=== PATIENT | female | born 1995 | race Caucasian/White ===

== ENCOUNTER 2018-02-24 21:53 | Emergency (ER) | payer OTHER ==
[~2018-02-24] VITALS: Ht 165.1 cm; Wt 62.2 kg
[~2018-02-24 21:53] MED LIST: MELLATONIN
[2018-02-24 22:04] VITALS: Ht 165.1 cm; Wt 62.2 kg
[2018-02-24] MEDS ORDERED: DIAZEPAM 5MG TAB PO STA (22:34)
--- NOTE | 2018-02-24 22:40 | EMERGENCY ROOM VISIT NOTE ---
History Report prepared by Michelleibramon: Alexandra Zamora Under the Supervision of: Dr. Giacomo Bolton M.D. First contact with patient: 22:28 Chief Complaint: SHOULDER PAIN Stated Complaint: FALL/ R SHOULDER PAIN History of Present Illness The patient is a 22 year old female who presents to the Emergency Room with complaints of constant R shoulder pain beginning this evening. She notes she was playing with her dog, when he pulled on the leash, and she fell onto her R arm. The patient reports she felt a "pop" in her arm as she was falling, and rates her pain a 10/10 in severity. She denies elbow pain. Her sister reports the patient was unable to get off the ground for a few minutes due to the pain. Source of History: patient Onset: this evening Position: shoulder (right) Symptom Intensity: 10/10 Quality: other (shoulder pain) Timing: constant Note: Denies: elbow pain Review of Systems See HPI for pertinent positives and negatives. A total of ten systems were reviewed and were otherwise negative. Past Medical & Surgical Medical Problems: (1) No chronic diseases present No chronic diseases present Family History No pertinent family history stated. Social History Smoking Status: Never Smoker Marital Status: single Current/Historical Medications Scheduled PRN Ibuprofen Tab (Motrin), 800 MG PO Q8H PRN for Pain Allergies Coded Allergies: No Known Allergies (Unverified , 02/24/18) Physical Exam Vital Signs Date Time Temp Pulse Resp B/P (MAP) Pulse Ox O2 Delivery O2 Flow Rate FiO2 02/25/18 01:18 70 12 102/61 94 02/25/18 00:16 70 12 100/58 94 Room Air 02/24/18 22:04 99 22 92/80 100 Room Air Physical Exam GENERAL: Awake, alert, uncomfortable-appearing, in mild distress HENT: Normocephalic, atraumatic. Oropharynx unremarkable. [Mucous membranes are dry.] EYES: Normal conjunctiva. Sclera non-icteric. NECK: Supple. No nuchal rigidity. FROM. No JVD. RESPIRATORY: Clear to auscultation. CARDIAC: Regular rate, normal rhythm. Extremities warm and well perfused. Pulses equal. ABDOMEN: Soft, non-distended. No tenderness to palpation. No rebound or guarding. No masses. RECTAL: Deferred. MUSCULOSKELETAL: Chest examination reveals no tenderness. The back is symmetrical on inspection without obvious abnormality. There is no CVA tenderness to palpation. No joint edema. UPPER EXTREMITIES: R shoulder deformity, tenderness at GH joint, axillary nerve intact, distal PMS intact, full ROM at elbow and wrist. LOWER EXTREMITIES: Calves are equal size bilaterally and non-tender. No edema. No discoloration. NEURO: Normal sensorium. No sensory or motor deficits noted. SKIN: No rash or jaundice noted. Medical Decision & Procedures ER Provider Diagnostic Interpretation: PRELIMINARY XRAY READ: Shoulder and Humerus Xray (initial): Likely anterior shoulder dislocation. Possible Brea Sachs deformity. No gross fx otherwise. Post reduction shoulder Xray: Successful shoulder reduction. Possible Brea Sachs deformity. No gross fx. Medications Administered Medications (Trade) Dose Ordered Sig/Antonella Route Start Time Stop Time Status Last Admin Dose Admin Diazepam (Valium Tab) 2 mg NOW STAT PO 02/24/18 22:34 02/24/18 22:35 DC 02/24/18 22:34 2 MG Morphine Sulfate (MoRPHine SULFATE INJ) 4 mg NOW STAT IV 02/24/18 23:07 02/24/18 23:10 DC 02/24/18 23:17 4 MG Diazepam (Valium Inj) 2.5 mg NOW STAT IV 02/25/18 00:05 02/25/18 00:06 DC 02/25/18 00:05 2.5 MG Ketorolac Tromethamine (Toradol Inj) 15 mg NOW STAT IV 02/25/18 00:55 02/25/18 00:56 DC 02/25/18 00:55 15 MG Procedure Anterior Shoulder Dislocation Reduction Indication: Right anterior shoulder dislocation. Verbal consent obtained. Risks and benefits were explained with the usual customary discussion. A time out was taken. Neurovascular examination before the procedure revealed normal exam. Pretreated with IV valium. Rodrigo technique unsuccessful. Subsequently, right shoulder glenohumeral dislocation was reduced by placing the patient supine and applying gentle caudal inline traction on the humerus with the elbow flexed at 90 degrees with bedsheet, with countertraction similarly applied. This resulted in an easy reduction without complication. Neurovascular examination after the procedure revealed normal exam. The patient had significant pain relief and tolerated the procedure well. ED Course 2225: The patient was evaluated in room B6. A complete history and physical exam was performed. 0006: I reevaluated the patient and performed a shoulder examination. Medical Decision I reviewed the patient's past medical history, medications, and the nursing notes as described above. Differential diagnosis: Etiologies such as fracture, dislocation, neurovascular compromise, compartment syndrome, soft tissue injury, as well as others were entertained. The patient is a 22-year-old woman who presents emergency department with right shoulder pain performed after being pulled and falling walking her dog per hpi. On arrival the patient is uncomfortable in mild pain distress, afebrile stable vital signs. On exam the patient has deformity of the right shoulder, tenderness of the GHJ, axillary nerve intact, full range of motion at the elbow and wrist with distal PMS intact. Plain film demonstrates likely anterior shoulder dislocation with possible Hill Sachs deformity but otherwise without gross fractures. Shoulder successfully reduced per procedure note. Patient was significantly improved and able to touch her contralateral shoulder. Plan for sling, PCP and Orth for follow-up. Findings and plan for follow-up reviewed with patient. Patient agreeable and d/c'd per discharge instructions. Medication Reconcilliation Current Medication List: was personally reviewed by me Blood Pressure Screening Patient's blood pressure: Normal blood pressure Blood pressure disposition: Did not require urgent referral Impression Primary Impression: Anterior dislocation of right shoulder Scribe Attestation The scribe's documentation has been prepared under my direction and personally reviewed by me in its entirety. I confirm that the note above accurately reflects all work, treatment, procedures, and medical decision making performed by me. Departure Information Dispostion Home / Self-Care Prescriptions Ibuprofen Tab (MOTRIN) 800 Mg Tab 800 MG PO Q8H Y for Pain for 7 Days, #21 TAB Prov: Giacomo Bolton M.D. 02/25/18 Referrals Kristin Miranda M.D. (PCP) Lemuel Cummins M.D. Patient Instructions ED Dislocation Shoulder Redu, [facility] Additional Instructions Please follow up with your primary care physician and orthopedics, Dr. Cummins , in the next week for re-evaluation. You were treated for a shoulder dislocation, which was successfully reduced. Acetaminophen or Ibuprofen for pain as needed. Sling until re-evaluated. Return to the emergency department for worsening symptoms as described in the accompanying instructions.
[2018-02-24] MEDS ORDERED: MoRPHine SULFATE 4 MG/ML 1 ML CARP\\VIAL IV STA (23:07)
[2018-02-25] MEDS ORDERED: DIAZEPAM INJ 5 MG/ML 2 ML CARP IV STA (00:05)
[2018-02-25] MEDS ORDERED: DIAZEPAM 5 MG/ML INJ 10ML VIAL ONE (00:10)
[2018-02-25] MEDS ORDERED: IBUP-1451 PO (00:53)
[2018-02-25] MEDS ORDERED: KETOROLAC TROMETHAMINE 30 MG/ML VIAL IV STA (00:55)
[2018-02-25 01:18] VITALS: BP 102/61; PULSE 70; O2SAT 94
--- NOTE | 2018-02-25 06:50 | DIAGNOSTIC IMAGING REPORT ---
R SHOULDER MIN 2 VIEWS ROUTINE, R HUMERUS MIN 2 VIEWS ROUTINE HISTORY: 22 years-old Female shoulder pain, deformity fall acute right shoulder and right arm pain status post fall with deformity. COMPARISON: None available TECHNIQUE: 2 views of the right shoulder and single AP view of the right humerus FINDINGS: SHOULDER: Anteroinferior dislocation of the humeral head in relation to the glenoid fossa is noted within a subcoracoid location. No acute fracture, significant degenerative changes or opaque foreign body. HUMERUS: No acute fracture identified. No significant degenerative changes. IMPRESSION: Anteroinferior dislocation of the humeral head within a subcoracoid location. No acute fracture. The above report was generated using voice recognition software. It may contain grammatical, syntax or spelling errors. Electronically signed by: Ranjith Tony M.D. 02/25/2018 6:48 AM Dictated Date/Time: 02/25/2018 6:46 AM
--- NOTE | 2018-02-25 06:51 | DIAGNOSTIC IMAGING REPORT ---
R SHOULDER MIN 2 VIEWS ROUTINE HISTORY: 22 years-old Female post-reduction status post reduction of the right shoulder dislocation. COMPARISON: Right shoulder radiographs of same day TECHNIQUE: 2 views of the right shoulder FINDINGS: Satisfactory alignment of the glenohumeral joint status post reduction. No definite Hill-Sachs deformity or bony Bankart injury. No acute fracture or dislocation. Imaged lung díza appear clear. IMPRESSION: Satisfactory alignment of the glenohumeral joint status post reduction. No acute fracture identified. The above report was generated using voice recognition software. It may contain grammatical, syntax or spelling errors. Electronically signed by: Ranjith Tony M.D. 02/25/2018 6:49 AM Dictated Date/Time: 02/25/2018 6:48 AM
== END 2018-02-25 01:19 | disposition home or self-care (01) ==
LOC: EDBD 21:53 → C.EDB 21:54
DX: S43.004A Unspecified dislocation of right shoulder joint, initial encounter (principal); X50.9XXA Other and unspecified overexertion or strenuous movements or postures, initial encounter